=== PATIENT | male | born 1995 | race Caucasian/White ===

== ENCOUNTER 2021-01-17 11:53 | Emergency (ER) | payer OTHER ==
[~2021-01-17] VITALS: Ht 177.8 cm; Wt 107.0 kg
--- NOTE | 2021-01-17 12:13 | NUR ---
PT COMES IN FROM WORK C/O SUDDEN ONSET 09/10 OWENS, FEVER, CHILLS, NAUSEA. "I WAS AT WORK AND I JUST GOT A HEADACHE, FEVER, CHILLS AND NAUSEA. NIGHAT NEVER FELT LIKE THAT BEFORE". PT STATES HE TOOK ADVIL. DESCRIBES OWENS 03/11 AFTER SELF ADMINISTERED MEDICATION. MONITORS CONNECTED. CALL LIGHT W/I REACH.
--- NOTE | 2021-01-17 12:30 | NUR ---
MD AT BEDSIDE FOR ASSESSMENT AND TO DISCUSS PLAN OF CARE
[2021-01-17] MEDS ORDERED: NEOSPORIN OINT. PKT 1 PACKET ONE (12:38)
--- NOTE | 2021-01-17 12:39 | NUR ---
PT DENIES USE OF DAILY MEDICATIONS. PREFERRED PHARMACY UPDATED. MED REC COMPLETE
--- NOTE | 2021-01-17 13:05 | NUR ---
PT AMBULATED TO DISCHARGE W/STEADY GAIT. PT ENCOURAGED TO FOLLOWUP DISCUSSED. PT EDUCATED TO RETURN TO THE ED W/WORSENING SYMPTOMS.
[2021-01-17 13:06] VITALS: BP 124/59
== END 2021-01-17 13:08 | disposition home or self-care (01) ==
LOC: ED 13:00
DX: B34.9 Viral infection, unspecified (principal); Z20.828 Contact with and (suspected) exposure to other viral communicable diseases
CPT/HCPCS: 99283; U0003